=== PATIENT | female | born 1980 | race American Indian/Alaskan Native ===

== ENCOUNTER 2016-11-18 00:42 | Emergency (ER) | payer SELFPAY ==
[2016-11-18 01:17] VITALS: BP 119/78
[2016-11-18 01:52] LABS: Urine Drugs of Abuse Note Disclamer
[2016-11-18 02:04] LABS: Bilirubin,Urine NEG (Negative); Blood,Urine LG (Negative); Ketones,Urine TR mg/dL (Negative); Leukocyte Esterase,Urine NEG (Negative); Mucus,Urine 2+ /HPF; Nitrite,Urine NEG (Negative)
--- NOTE | 2016-11-20 19:00 | ED Elopement Review ---
ED Pt Elopement review - Results review Lab results: Laboratory Tests 11/18/16 11/18/16 01:48 01:48 Urine Color Yellow Urine Turbidity Clear Urine pH 5.0 Ur Specific [place] 1.027 Urine Protein 30 mg/dl Urine Glucose (UA) Neg Urine Ketones Tr Urine Blood Lg Urine Nitrite Neg Urine Bilirubin Neg Urine Urobilinogen 2.0 Ur Leukocyte Esterase Neg Urine WBC (Auto) 35.0 H Urine RBC (Auto) 134.0 U Epithel Cells (Auto) 5.0 Calcium Oxalate Crystal Few Urine Mucus 2+ Urine HCG, Qual Negative Urine Opiates Screen Presumptive negative Urine Methadone Screen Presumptive negative Ur Barbiturates Screen Presumptive positive Ur Phencyclidine Scrn Presumptive negative Ur Amphetamines Screen Presumptive negative U Benzodiazepines Scrn Presumptive negative Urine Cocaine Screen Presumptive positive U Marijuana (THC) Screen Presumptive positive Drugs of Abuse Note Disclamer - Call Back decision Pt Call Back Decision: Pt to F/U with PMD
== END 2016-11-18 04:10 | disposition left against medical advice (07) ==
LOC: ED 00:42
DX: F43.10 Post-traumatic stress disorder, unspecified (principal); X58.XXXA Exposure to other specified factors, initial encounter; Y93.89 Activity, other specified; Y92.89 Other specified places as the place of occurrence of the external cause; Y99.8 Other external cause status; Z53.21 Procedure and treatment not carried out due to patient leaving prior to being seen by health care provider
CPT/HCPCS: 80307; 81001; 81025

== ENCOUNTER 2022-04-15 05:08 | Emergency (ER) | payer SELFPAY ==
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
[2022-04-16] MEDS: HALOPERIDOL LACTATE 5 MG/1 ML INJ IM PRN (08:06)
--- NOTE | 2022-04-16 08:39 | Emergency Department Report ---
Blank Doc - Documentation Documentation: 42 yo F p/w paranoid delusions. VSS. Pt had no acute overnight events per review of EHR. She continues to remain a 1013 psychiatric hold. The pt is awaiting formal disposition by psychiatry.
[2022-04-16 11:21] LABS: HCG Qualitative,Urine Negative (Negative)
[2022-04-16 11:27] LABS: Amphetamine Screen,Urine Negative; Benzodiazepines Screen,Urine Negative; Methadone Screen,Urine Negative; Opiate Screen,Urine Negative
[2022-04-16 11:42] LABS: Mucus,Urine 3+ /HPF; Renal Epithelial Cells,Urine 3 /LPF
[2022-04-16 11:51] LABS: Cannabinoid Screen,Urine Positive; Cocaine Screen,Urine Positive
[2022-04-16 13:15] LABS: Color,Urine Yellow (Yellow); Ictotest,Urine Negative (Negative)
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
[2022-04-16] MEDS: QUEtiapine 25 MG TAB PO SCH ×2 (16:30→23:00)
--- NOTE | 2022-04-17 08:26 | Event Note ---
Date: 04/17/22 42 yo F p/w paranoid delusions. VSS. Pt had no acute overnight events oer nursing staff. She continues to remain a 1013 psychiatric hold. The pt is awaiting formal disposition by psychiatry.
[2022-04-17] MEDS: HALOPERIDOL LACTATE 5 MG/1 ML INJ IM PRN (08:41)
[2022-04-17] MEDS: QUEtiapine 25 MG TAB PO SCH (10:06)
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
[2022-04-17] MEDS ORDERED: traZODone 50 MG TAB PO PRN (22:00)
[2022-04-18] MEDS: hydrOXYzine PAMOATE 25 MG CAP PO PRN ×2 (00:26→14:23)
[2022-04-18] MEDS: MELATONIN 5 MG TAB PO SCH ×2 (00:27→21:39)
[2022-04-18] MEDS: QUEtiapine 25 MG TAB PO SCH ×3 (00:27→09:52)
[2022-04-18] MEDS: HALOPERIDOL LACTATE 5 MG/1 ML INJ IM PRN ×2 (03:33→12:06)
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
[2022-04-18] MEDS: LITHIUM CARBONATE 300 MG CAP PO SCH ×2 (13:38→21:39)
--- NOTE | 2022-04-18 13:47 | Emergency Department Report ---
Blank Doc - Documentation Documentation: Patient has history of psychosis, in the emergency for approximately 4 days for same patient has no medical emergency at this time. Vital signs are stable.
[2022-04-18] MEDS ORDERED: QUEtiapine 100 MG TAB PO SCH (22:00)
[2022-04-19] MEDS: LITHIUM CARBONATE 300 MG CAP PO SCH ×3 (05:53→23:14)
[2022-04-19] MEDS: hydrOXYzine PAMOATE 25 MG CAP PO PRN (08:24)
[2022-04-19] MEDS: HALOPERIDOL LACTATE 5 MG/1 ML INJ IM PRN (08:24)
--- NOTE | 2022-04-19 09:09 | Progress Note ---
Subjective - Reason for Consult Consult date: 04/19/22 Reason for consult: psychosis - Chief Complaint Chief complaint: The patient was seen today. She is in seclusion. The patient is standing at the window. She says voices are telling her to get her hair and nails done. She repeats the same thing. Staff says she has been loud, yelling, and agitated. REVIEW OF SYSTEMS Constitutional: Negative for weight loss ENT: Negative for stridor Respiratory: Negative for cough or hemoptysis All other systems reviewed and are negative MENTAL STATUS EXAMINATION General Appearance and Behavior: Age appropriate, wearing appropriate clothes, polite with questioning, good eye contact Cooperation: cooperative Psychomotor Behavior: Psychomotor increased Mood: good Affect and affective range: congruent with stated mood, happy Thought Process: responding to internal stimuli, disorganized Thought Content: delusional Speech: Fast rate and rhythm, normal volume Suicidal Ideation: Denies Homicidal Ideation: Denies Hallucination: Auditory Delusions: Yes, grandiose Impulse Control: Poor Insight and Judgment: Poor Memory: Fair Attention: Distracted Orientation: Alert and oriented x 3 ASSESSMENT: Schizoaffective disorder TREATMENT: 1013 Increase Seroquel 150mg po BID [place] 300mg po q8h Risks, benefits and alternatives of medications discussed with the patient, questions answered and consent obtained from patient. PSYCHOTHERAPY: Supportive psychotherapy provided MEDICAL: Per primary team DELIRIUM PRECAUTIONS: Please re-orient patient frequently, keep lights on during the day, and minimize benzodiazepines and opiates as these medications could worsen patient's confusion. BLACK PICKLER: Defer to primary DISPOSITION: Recommend acute inpatient psychiatric hospitalization. FOLLOW-UP: Will follow Case staffed with Dr. Stan George Mental Status Exam - Vital signs Last Vital Signs Temp 98.0 F 04/19/22 02:36 Pulse 89 04/19/22 02:36 Resp 18 04/19/22 02:36 BP 140/60 04/19/22 02:36 Pulse Ox 99 04/19/22 02:36
[2022-04-19] MEDS: QUEtiapine 100 MG TAB PO SCH ×2 (10:09→23:13)
--- NOTE | 2022-04-19 12:12 | Event Note ---
Date: 04/19/22 S: No events reported overnight O: Vital Signs - 24 hr 04/18/22 04/19/22 21:03 02:36 Temperature 98.7 F 98.0 F Pulse Rate 98 H 89 Respiratory 16 18 Rate Blood Pressure 152/81 140/60 [Left] O2 Sat by Pulse 100 99 Oximetry A: Schizophrenia/bipolar disorder P: 1013/awaiting inpatient psych
[2022-04-19] MEDS: MELATONIN 5 MG TAB PO SCH (23:13)
[2022-04-20] MEDS ORDERED: ACETAMINOPHEN 325 MG TAB PO ONE (02:52)
[2022-04-20] MEDS: LITHIUM CARBONATE 300 MG CAP PO SCH ×3 (07:59→21:46)
[2022-04-20] MEDS: QUEtiapine 100 MG TAB PO SCH (10:23)
--- NOTE | 2022-04-20 10:23 | Progress Note ---
Subjective - Reason for Consult Consult date: 04/20/22 Reason for consult: psychsis - Chief Complaint Chief complaint: The patient was seen today. She is in seclusion. The patient was out of seclusion but staff says they had to put her back in for agitation, disruption, screaming and yelling. The patient is standing at the window speaking nonsensically. She has a towel tied around her head. She says she is hearing voices that are "just tingling in my ear." The patient is talking about going to get her nails done, asking me if I'm an AKA. She then says "the voices keep saying to get my hair done." She just stares at me when I ask her about SI/HI. The patient is later heard singing outloud. Security says she ripped the towel up she had on her head. REVIEW OF SYSTEMS Constitutional: Negative for weight loss ENT: Negative for stridor Respiratory: Negative for cough or hemoptysis All other systems reviewed and are negative MENTAL STATUS EXAMINATION General Appearance and Behavior: Age appropriate, wearing appropriate clothes, polite with questioning, good eye contact Cooperation: cooperative Psychomotor Behavior: Psychomotor increased Mood: good Affect and affective range: congruent with stated mood, happy Thought Process: responding to internal stimuli, disorganized Thought Content: delusional Speech: Fast rate and rhythm, normal volume Suicidal Ideation: Denies Homicidal Ideation: Denies Hallucination: Auditory Delusions: Yes, grandiose Impulse Control: Poor Insight and Judgment: Poor Memory: Fair Attention: Distracted Orientation: Alert and oriented x 3 ASSESSMENT: Schizoaffective disorder TREATMENT: 1013 Increase Seroquel 200mg po BID Start Klonopin 0.25mg po BID x 3 days [place] 300mg po q8h Risks, benefits and alternatives of medications discussed with the patient, questions answered and consent obtained from patient. PSYCHOTHERAPY: Supportive psychotherapy provided MEDICAL: Per primary team DELIRIUM PRECAUTIONS: Please re-orient patient frequently, keep lights on during the day, and minimize benzodiazepines and opiates as these medications could worsen patient's confusion. DECKHAND FISHING VESSEL: Defer to primary DISPOSITION: Recommend acute inpatient psychiatric hospitalization. FOLLOW-UP: Will follow Case staffed with Dr. Stan George Mental Status Exam - Vital signs Last Vital Signs Temp 98.0 F 04/19/22 02:36 Pulse 89 04/19/22 02:36 Resp 18 04/19/22 02:36 BP 140/60 04/19/22 02:36 Pulse Ox 99 04/20/22 07:00
[2022-04-20] MEDS: clonazePAM 0.5 MG TAB PO SCH ×2 (11:17→21:46)
--- NOTE | 2022-04-20 12:03 | Event Note ---
Date: 04/20/22 S: No events reported overnight O: Vital Signs - 8 hr 04/20/22 04/20/22 07:00 10:00 Temperature 98.6 F Pulse Rate 90 Respiratory 18 Rate Blood Pressure 140/95 [Left] O2 Sat by Pulse 99 96 Oximetry A: Schizoaffective disorder P: 1013/awaiting inpatient psych
[2022-04-20 19:42] LABS: Basophils % (Auto) 0.6 % (0.0-1.8); Eosinophils # (Auto) 0.1 K/mm3 (0.0-0.4); Eosinophils % (Auto) 1.5 % (0.0-4.3); Hematocrit 42.1 % (30.3-42.9); Hemoglobin 13.9 gm/dl (10.1-14.3); Lymphocytes # (Auto) 1.6 K/mm3 (1.2-5.4); Lymphocytes % (Auto) 23.5 % (13.4-35.0); Mean Corpuscular HGB Conc 33 % (30-34); Mean Corpuscular Volume 103 fl (79-97); Monocytes # (Auto) 0.6 K/mm3 (0.0-0.8); Monocytes % (Auto) 9.4 % (0.0-7.3); Red Blood Count 4.09 M/mm3 (3.65-5.03); Red Cell Distribution Width 13.9 % (13.2-15.2)
[2022-04-20 19:44] LABS: Platelet Count 317 K/mm3 (140-440)
[2022-04-20 20:00] LABS: Alanine Aminotransferase 52 units/L (7-56); Albumin 4.9 g/dL (3.9-5); BUN/Creatinine Ratio 13; Blood Urea Nitrogen 12 mg/dL (7-17); Calcium 10.2 mg/dL (8.4-10.2); Hemolysis Index 82
[2022-04-20] MEDS: MELATONIN 5 MG TAB PO SCH (21:45)
[2022-04-20] MEDS: QUEtiapine 200 MG TAB PO SCH (21:45)
[2022-04-21] MEDS: LITHIUM CARBONATE 300 MG CAP PO SCH (05:53)
--- NOTE | 2022-04-21 09:11 | Progress Note ---
Subjective - Reason for Consult Consult date: 04/21/22 Reason for consult: psychosis - Chief Complaint Chief complaint: The patient was seen today. She is no longer in seclusion and presents much better. The patient's thoughts is organized. She says "I feel great today. I feel like I'm ready to go." The patient denies SI/HI. When asked about hallucinations, she says "it's more of an echo, but I don't hear any voices." The patient says her plan is to go to [place]. She says she has a friend there. The patient says her son is going to help her get a bus ticket. REVIEW OF SYSTEMS Constitutional: Negative for weight loss ENT: Negative for stridor Respiratory: Negative for cough or hemoptysis All other systems reviewed and are negative MENTAL STATUS EXAMINATION General Appearance and Behavior: Age appropriate, wearing appropriate clothes, polite with questioning, good eye contact Cooperation: cooperative Psychomotor Behavior: Psychomotor increased Mood: great Affect and affective range: congruent with stated mood, happy Thought Process: goal directed Thought Content: within reality Speech: Fast rate and rhythm, normal volume Suicidal Ideation: Denies Homicidal Ideation: Denies Hallucination: Auditory Delusions: none elicited Impulse Control: Limited Insight and Judgment: Limited Memory: Fair Attention: attentive Orientation: Alert and oriented x 3 ASSESSMENT: Schizoaffective disorder TREATMENT: d/c 1013 Seroquel 200mg po BID d/c Klonopin 0.25mg po BID x 3 days Morrice 300mg po q8h Trazodone 50mg po qhs Vistaril 50mg p q6h prn anxiety Risks, benefits and alternatives of medications discussed with the patient, questions answered and consent obtained from patient. PSYCHOTHERAPY: Supportive psychotherapy provided MEDICAL: Per primary team DELIRIUM PRECAUTIONS: Please re-orient patient frequently, keep lights on during the day, and minimize benzodiazepines and opiates as these medications could worsen patient's confusion. [employer] DEVELOPMENT: Defer to primary DISPOSITION: Do not recommend acute inpatient psychiatric hospitalization. The patient understands that if SI/HI are to arise she is to seek immediate assistance. The unscrambler to give the patient all necessary outpatient resources FOLLOW-UP: Will sign off Case staffed with Dr. Stan George Mental Status Exam - Vital signs Last Vital Signs Temp 98.6 F 04/20/22 10:00 Pulse 90 04/20/22 10:00 Resp 18 04/20/22 10:00 BP 140/95 04/20/22 10:00 Pulse Ox 96 04/20/22 10:00
[2022-04-21] MEDS: clonazePAM 0.5 MG TAB PO SCH (10:31)
[2022-04-21] MEDS: QUEtiapine 200 MG TAB PO SCH (10:32)
[2022-04-21 10:58] VITALS: BP 123/69
== END 2022-04-21 12:15 | disposition home or self-care (01) ==
LOC: ED 05:08
DX: F29 Unspecified psychosis not due to a substance or known physiological condition (principal); Z20.822 Contact with and (suspected) exposure to COVID-19; F17.200 Nicotine dependence, unspecified, uncomplicated; Z79.899 Other long term (current) drug therapy
CPT/HCPCS: 36415; 80053; 80307; 81001; 81025; 85025; 87086; 96372; 99284; J1630; U0003